=== PATIENT | female | born 1985 | race African-American/Black ===

== ENCOUNTER 2022-11-09 05:00 | Inpatient (IN) | payer OTHER ==
[2022-11-09] MEDS ORDERED: ELECTROLYTE-148 SOLN 1,000 ML IV SCH (06:00)
[2022-11-09] MEDS ORDERED: AMPICILLIN - 2 GM in SODIUM CHLORIDE 100 ML IVPB ONE (06:30)
[2022-11-09] MEDS ORDERED: AMPICILLIN SODIUM 2 GM VIAL ONE (06:47)
[2022-11-09 06:52] VITALS: BMI 44.1
[2022-11-09 07:07] LABS: CALCIUM 8.5 mg/dL (8.5-10.1)
[2022-11-09 07:08] LABS: BLOOD UREA NITROGEN 9.2 mg/dL (7-18)
[2022-11-09 07:11] LABS: CREATININE 0.6 mg/dL (0.55-1.3)
[2022-11-09 07:24] LABS: BASO % 0.4 % (0-2.0); EOS % 1.1 % (0-4.5); HEMATOCRIT 32.1 % (32.4-45.2); HEMOGLOBIN 10.2 GM/dL (10.7-15.3); LYMPH % 25.9 % (8-40); MCHC 31.8 g/dl (32.0-36.0); MEAN CELL VOLUME 72.6 fl (80-96); MEAN PLT VOLUME 7.9 fl (7.5-11.1); MONO % 9.7 % (3.8-10.2); NEUT % 62.9 % (42.8-82.8); PLATELET COUNT 298 10^3/uL (134-434); RBC 4.42 M/mm3 (3.60-5.2); RDW 18.6 % (11.6-15.6); WHITE BLOOD COUNT 9.1 K/mm3 (4.0-10.0)
[2022-11-09 07:31] LABS: ACTIVATED PTT 26.4 SECONDS (25.2-36.5)
[2022-11-09 08:15] LABS: PROTHROMBIN TIME (PATIENT) 11.6 SEC (9.7-13.0)
[2022-11-09] MEDS ORDERED: ELECTROLYTE-148 SOLN 500 ML IV ONE (08:47)
[2022-11-09] MEDS ORDERED: CITRIC ACID/SODIUM CITRATE 30 ML UNIT-DOSE CUP PO ONE (08:50)
[2022-11-09] MEDS ORDERED: DEXTROSE 5%-LACTATED RINGERS 1,000 ML IV SCH (09:00)
[2022-11-09 09:55] LABS: HIV INTERPRETATION NEGATIVE (NEGATIVE)
[2022-11-09] MEDS ORDERED: AMPICILLIN SODIUM 1 GM VIAL ONE (10:30)
[2022-11-09] MEDS ORDERED: AMPICILLIN - 1 GM in SODIUM CHLORIDE 100 ML IVPB SCH (10:30)
[2022-11-09] MEDS: ELECTROLYTE-148 SOLN 1,000 ML IV SCH (11:20)
[2022-11-09] MEDS ORDERED: morphine SULFATE/PF 1 MG/2 ML (2cc Syringe - QUVA) ONE (12:21)
[2022-11-09] MEDS ORDERED: ePHEDrine SULFATE 50 MG/1 ML AMPULE ONE (12:33)
[2022-11-09] MEDS ORDERED: OXYTOCIN 10 UNITS/ML VIAL ONE ×4 (13:16)
[2022-11-09] MEDS ORDERED: ceFAZolin SODIUM 1 GM VIAL ONE ×2 (13:16)
[2022-11-09] MEDS ORDERED: IBUPROFEN 800 MG/8 ML IJ IVPB PRN (13:28)
[2022-11-09] MEDS ORDERED: METHYLERGONOVINE MALEATE 0.2 MG/1 ML AMP IM PRN (13:28)
[2022-11-09] MEDS ORDERED: ACETAMINOPHEN 325 MG TABLET (FP) PO PRN ×2 (13:28→13:34)
[2022-11-09] MEDS ORDERED: SENNOSIDES/DOCUSATE COMBO (SENNA PLUS) TABLET (UD) PO PRN (13:28)
[2022-11-09] MEDS ORDERED: ONDANSETRON 4 MG/2 ML VIAL IVPUSH PRN (13:34)
[2022-11-09] MEDS ORDERED: IBUPROFEN 600 MG TABLET (FP) PO PRN (13:34)
[2022-11-09] MEDS: OXYTOCIN 20 UNITS in 0.9% NS 20 UNIT/1,000 ML INFUS.BAG IV SCH (14:30)
[2022-11-09] MEDS: FERROUS SO4 325 MG TABLET (FP) PO SCH (16:32)
[2022-11-09] MEDS: NIFEdipine E.R. 30 MG TABLET PO SCH (19:10)
[2022-11-10] MEDS ORDERED: oxyCODONE HCL 5 MG TABLET PO PRN (01:28)
[2022-11-10 07:44] LABS: BASO % 0.1 % (0-2.0); EOS % 0.7 % (0-4.5); HEMATOCRIT 30.3 % (32.4-45.2); HEMOGLOBIN 9.6 GM/dL (10.7-15.3); LYMPH % 10.9 % (8-40); MCHC 31.7 g/dl (32.0-36.0); MEAN CELL VOLUME 72.4 fl (80-96); MEAN PLT VOLUME 7.3 fl (7.5-11.1); MONO % 7.9 % (3.8-10.2); NEUT % 80.4 % (42.8-82.8); PLATELET COUNT 265 10^3/uL (134-434); RBC 4.18 M/mm3 (3.60-5.2); RDW 18.3 % (11.6-15.6); WHITE BLOOD COUNT 10.6 K/mm3 (4.0-10.0)
[2022-11-10] MEDS: IBUPROFEN 600 MG TABLET (FP) PO PRN ×2 (07:52→16:40)
[2022-11-10] MEDS: FERROUS SO4 325 MG TABLET (FP) PO SCH ×2 (07:52→16:40)
[2022-11-10] MEDS: NIFEdipine E.R. 30 MG TABLET PO SCH (09:09)
[2022-11-10] MEDS: PRENATAL VITAMINS W/ FOLIC ACID TABLET (FP) PO SCH (09:09)
[2022-11-10] MEDS ORDERED: BISACODYL 10 MG SUPP.RECT RC PRN (13:28)
[2022-11-10] MEDS: SIMETHICONE 80 MG TAB.CHEW (FP) PO PRN (19:35)
[2022-11-11] MEDS: OXYTOCIN 20 UNITS in 0.9% NS 20 UNIT/1,000 ML INFUS.BAG IV SCH (01:32)
[2022-11-11] MEDS: ELECTROLYTE-148 SOLN 1,000 ML IV SCH (01:32)
[2022-11-11] MEDS: SIMETHICONE 80 MG TAB.CHEW (FP) PO PRN ×3 (01:48→20:55)
[2022-11-11] MEDS: oxyCODONE HCL 5 MG TABLET PO PRN ×2 (05:35→20:55)
[2022-11-11] MEDS: FERROUS SO4 325 MG TABLET (FP) PO SCH ×2 (08:43→18:30)
[2022-11-11] MEDS: IBUPROFEN 600 MG TABLET (FP) PO PRN ×2 (10:00→18:38)
[2022-11-11] MEDS: NIFEdipine E.R. 30 MG TABLET PO SCH (10:00)
[2022-11-11] MEDS: PRENATAL VITAMINS W/ FOLIC ACID TABLET (FP) PO SCH (10:00)
[2022-11-12] MEDS: SIMETHICONE 80 MG TAB.CHEW (FP) PO PRN (08:08)
[2022-11-12] MEDS: FERROUS SO4 325 MG TABLET (FP) PO SCH (08:08)
[2022-11-12] MEDS: IBUPROFEN 600 MG TABLET (FP) PO PRN (08:08)
[2022-11-12 09:04] VITALS: BP 132/81; PULSE 89; RESP 20; TEMP 97.8
[2022-11-12] MEDS: NIFEdipine E.R. 30 MG TABLET PO SCH (09:48)
[2022-11-12] MEDS: PRENATAL VITAMINS W/ FOLIC ACID TABLET (FP) PO SCH (09:48)
== END 2022-11-12 12:00 | disposition home or self-care (01) | DRG 540 ==
LOC: JDEL 05:00 → JLDR 06:00 → J3W 14:35
PROVIDERS: ADMIT Obstetrics & Gynecology; ATTEND Obstetrics & Gynecology
PROC: 10D00Z1 Extraction of Products of Conception, Low, Open Approach (ICD-10-PCS; principal; 2022-11-09)
DX: O34.211 Maternal care for low transverse scar from previous cesarean delivery (principal); O42.02 Full-term premature rupture of membranes, onset of labor within 24 hours of rupture; N73.6 Female pelvic peritoneal adhesions (postinfective); Z3A.38 38 weeks gestation of pregnancy; Z37.0 Single live birth
CPT/HCPCS: 36415; 80048; 85025; 85610; 85730; 86780; 86850; 86900; 86901; 87389; 88307-TC; 94010; C9803-CS; U0003; U0005